=== PATIENT | male | born 2000 | race Caucasian/White ===

== ENCOUNTER 2023-01-01 20:20 | Outpatient (CLI) | payer OTHER, SELFPAY | END 2023-01-01 20:21 | disposition home or self-care (01) | LOC: AMB 01-04 01:26 | PROVIDERS: Visit Provider Family Medicine | DX: M25.521 Pain in right elbow (principal) | CPT/HCPCS: A0425; A0429 ==

== ENCOUNTER 2023-01-01 20:37 | Emergency (ER) | payer OTHER, SELFPAY ==
[2023-01-01 20:43] VITALS: BP 137/89; PULSE 84; RESP 18; TEMP 36.7; O2SAT 95
--- NOTE | 2023-01-01 20:50 | ED.GENADULT ---
HPI - General Adult General Chief complaint: Extremity Pain/Injury, Upper Stated complaint: R elbow injury Time Seen by Provider: 01/01/23 20:49 History of Present Illness HPI narrative: pt was throwing a football, heard a snapping sound on right elbow . CMS intact, movement does cause pain. 22-year-old man presenting to the emergency department via EMS with concern of right elbow pain after throwing a football. [place] a ?snapping? sound apparently. Is having a great deal of pain. Pain is primarily around the elbow and lower humerus. Does not report any numbness or tingling in his hand. Further question reveals that Fly is currently taking Suboxone with last dose about 14 hours ago. Dad has reportedly called while I was in the room with Fly noting that he is not to receive any ?pain medications and ?. Per report is only allowed to receive acetaminophen or ibuprofen. Related Data Home Medications Medication Instructions Recorded Confirmed buprenorphine-naloxone sublingual 01/01/23 Allergies Allergy/AdvReac Type Severity Reaction Status Date / Time No Known Drug Allergies Allergy Verified 01/01/23 20:48 Review of Systems Status of ROS: Reports: 6 or more systems reviewed and unremarkable except as noted in History and below Exam Narrative: Exam Narrative: Clearly uncomfortable. Right elbow is bent at 90? and looks like a sweatshirt has been draped or tight around the arm to the abdomen. Has an ice pack at his elbow. Eyes closed and wincing in apparent pain. [place] is able to open and close his hand all fingers fully. Has good radial pulse and perfusion peripherally. Generally is swollen at the distal humerus. Seems to have more deformity along the lateral aspect. Unable to due to apparent pain extend or flex at the elbow. Pain diffusely to palpation about the elbow. Is able to pronate and supinate the forearm but returning to supination causes more pain. There is a scar evident at the distal wrist. Const: Vital Signs, click to edit/add: Vital Signs - 24 hr 01/01/23 20:43 Temperature 98.0 F Pulse Rate [Left P ulse Oximeter] 84 Respiratory Rate 18 Blood Pressure [Le ft Upper Arm] 137/89 Pulse Oximetry 95 Oxygen Delivery Me thod Room Air Documenting provider has reviewed patient's vital signs: yes Course Vital Signs Vital signs: Initial Vital Signs Temperature 98.0 F 01/01/23 20:43 Temperature Source Temporal Artery Scan 08/25/23 20:43 Pulse Rate 84 01/01/23 20:43 Respiratory Rate 18 01/01/23 20:43 Blood Pressure 137/89 01/01/23 20:43 Blood Pressure Mean 105 01/01/23 20:43 Blood Pressure Position Sitting 01/01/23 20:43 Pulse Oximetry 95 01/01/23 20:43 Oxygen Delivery Method Room Air 01/01/23 20:43 Vital Signs Temperature 98.0 F 01/01/23 20:43 Pulse Rate 84 01/01/23 20:43 Respiratory Rate 18 01/01/23 20:43 Blood Pressure 137/89 01/01/23 20:43 Pulse Oximetry 95 01/01/23 20:43 Oxygen Delivery Method Room Air 01/01/23 20:43 Temperature 98.0 F 01/01/23 20:43 Pulse Rate 84 01/01/23 20:43 Respiratory Rate 18 01/01/23 20:43 Blood Pressure 137/89 01/01/23 20:43 Pulse Oximetry 95 01/01/23 20:43 Oxygen Delivery Method Room Air 01/01/23 20:43 Medical Decision Making MDM Narrative Medical decision making narrative: Wondering if there is some rupture of tricep here. Generally swollen now. This may be the lateral head of the biceps as well. Elbow does not appear to be dislocated. Certainly there may be a fracture if so would appear to be distal humerus. Anticipate placement of IV. I discussed with Fly pain management. He mentions Suboxone as noted above. Contemplating pain dose ketamine and ketorolac at this point. Discussed further pain management with his father who had called and with Fly present on speaker phone. 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 Staying at a custodial house. Would also like to avoid even the inkling of medication like ketamine as voiced by father. IV was placed. Receive normal saline and 30 mg of ketorolac. Mild relief in pain perhaps. X-ray is completed. Initially ordered as an elbow but fracture is evident in distal humerus. Imaging is adjusted to the humerus. This by my read shows an oblique somewhat dislocated fracture of the distal humerus not involving the joint. Anticipating splint of some sort and ortho follow-up. Discussed this case with Orthopedics to arrange follow-up. Further recommendation return to apply coaptation splint after padding about the distal humerus and elbow. Anticipate follow-up placement of splint/cast as opposed to surgical intervention. Definitely improved. Opening his eyes. Seems more comfortable with the support in place now. Also placed arm sling. Did also place a call to father with Fly present. See patient discharge plan. Discharge Plan Discharge Clinical Impression: Fracture of distal humerus Patient Disposition: Home, Self-Care Condition: Improved Additional Instructions: Generally keep the splint in place. If you really want to you can remove this sling and apply ice packs. I like those ?old-fashioned? ice bags with the screw top lids. About a tray of ice and water in there tends to do it. And then wrap on with the Kevin wrap. Wear the arm sling also for support. Can take up to 800 mg of ibuprofen or up to 1000 mg of acetaminophen per dose. Alternative to the ibuprofen might be up to 500 mg of naproxen 2 times daily. The ibuprofen or naproxen could be combined with acetaminophen. Do not take the ibuprofen and naproxen at the same time dosing. Stay well-hydrated. Anticipate a call from orthopedics likely on Wednesday. If you do not hear from them by noon go ahead and call them at [phone]. Be seen for uncontrolled pain, new and persistent numbness or difficulty moving your fingers. Prescriptions: No Action buprenorphine-naloxone [Suboxone] sublingual Follow Up/Referrals: Provider,Not a Local [Primary Care Provider] - Stand Alone Forms: [facility], [place] Info Instructions Procedures Orthopedic Splinting/Casting Injury #1: Side: right Upper Extremity Injury Location: upper arm Upper extremity immobilizer: sugar tong splint (Coaptation splint) Applied by clinician: CARLITOS (Assisted by nursing.) Conclusion: patient tolerated procedure Additional Comments: Improved. Sensation intact.
--- NOTE | 2023-01-01 21:03 | CRLHL7_ITS ---
For Patients: As a result of the Century Cures Act, medical imaging exams and procedure reports are released immediately into your electronic medical record. You may view this report before your referring provider. If you have questions, please contact your health care provider. Indication: Trauma with pain and swelling Technique: Frontal and lateral views of the right humerus Comparison: None Findings: Bones: Acute, mildly displaced, obliquely oriented fracture through the distal diaphysis of the right humerus. There is approximately 1.2 cm lateral displacement of the distal humerus in relation to the proximal humerus. The fracture does not extend into elbow joint. Joint spaces: Unremarkable. Soft tissues: Mild soft tissue swelling around the fracture site. Impression: Acute, mildly displaced, obliquely oriented fracture through the distal diaphysis of the right humerus. Dictated by Sarah Mcgrath MD @ 01/01/2023 10:02:42 PM (Electronically Signed)
[2023-01-01] MEDS: 0.9 % SODIUM CHLORIDE 1000 ml 1,000 ML 2000 ML IV (21:23)
[2023-01-01] MEDS: KETOROLAC 30 MG/ML inj IVP (21:23)
[2023-01-01 23:40] VITALS: BP 136/64; PULSE 82; RESP 18; O2SAT 99
== END 2023-01-01 23:58 | disposition home or self-care (01) ==
PROVIDERS: Emergency Provider Family Medicine
DX: S42.401A Unspecified fracture of lower end of right humerus, initial encounter for closed fracture (principal); Y93.61 Activity, american tackle football
CPT/HCPCS: 29105; 73060; 96374; 99283; 99284; A0425; A0429; J1885; J7030